=== PATIENT | female | born 1985 | race Caucasian/White ===

== ENCOUNTER 2019-12-14 15:12 | Outpatient (CLI) | payer OTHER, SELFPAY ==
--- NOTE | 2019-12-14 15:16 | US_ITS ---
WS: [id number] RIGHT UPPER QUADRANT ULTRASOUND HISTORY: PAIN COMPARISON: 10/22/2018 Liver: 12.3 cm in length. Normal size and echogenicity with no intrahepatic dilatation. No mass. Gallbladder: Numerous stones and no normally distended gallbladder. No pericholecystic fluid or gallb ladder wall thickening. CBD: 0.3 cm Pancreas: Normal size and echogenicity. Right kidney: 12.0 cm in length. Normal echogenicity with no mass or hydronephrosis. Aorta and IVC: Unremarkable. No ascites. US/US gall bladder [id number] IMPRESSION: 1. Cholelithiasis without evidence for acute cholecystitis. 2. No bile duct dilatation.
== END 2019-12-14 15:13 | disposition home or self-care (01) ==
LOC: RAD 15:14
PROVIDERS: PCP Family Medicine; Visit Provider Nurse Practitioner Family
DX: K80.20 Calculus of gallbladder without cholecystitis without obstruction (principal); R10.11 Right upper quadrant pain
CPT/HCPCS: 76705

== ENCOUNTER 2020-10-06 08:19 | Outpatient (CLI) | payer OTHER, SELFPAY ==
--- NOTE | 2020-10-06 08:22 | MM_ITS ---
WS: [id number] Exam: [id number] Date/Time of Exam: 10/06/2020 8:30 AM Reason For Exam: SCREENING VIEWS: MLO and CC views both breasts. Comparison made with prior exam of 01/04/2015 left breast only. Findings: There was no sign of mass, architectural distortion or suspicious calcification in either breast. He terogeneously [place] MM/[place] [id number] Impression: BI-RADS: 2-Benign FOLLOW-UP: 1 Year Follow-up This mammogram was also analyzed by the Computer Aided Detection System R2 [employer].
== END 2020-10-06 08:20 | disposition home or self-care (01) ==
LOC: RADSHAW 08:21
PROVIDERS: PCP Family Medicine; Visit Provider Family Medicine
DX: Z12.31 Encounter for screening mammogram for malignant neoplasm of breast (principal)
CPT/HCPCS: 77067

== ENCOUNTER 2022-12-28 10:53 | Outpatient (CLI) | payer OTHER, SELFPAY ==
--- NOTE | 2022-12-28 10:59 | MM_ITS ---
WS: [id number] BILATERAL 3D TOMOSYNTHESIS DIGITAL DIAGNOSTIC MAMMOGRAPHY WITH CAD CLINICAL INFORMATION: RT BR LUMP HISTORY: RIGHT breast lump COMPARISON: 2020 TECHNIQUE: Bilateral CC, MLO, and ML views. FINDINGS: The breasts are composed of heterogeneous fibroglandular density, which can limit the detection of sm all underlying mass lesions. Palpable marker upper outer RIGHT breast. Ultrasound described below. A few incidental punctate calcifications. LEFT breast parenchyma is unchanged. ULTRASOUND BREAST RIGHT TECHNIQUE: Ultrasound right breast focused area of concern. CLINICAL INFORMATION: RT BR LUMP FINDINGS: Ultrasound RIGHT breast area of concern upper outer RIGHT breast at the 11:00 position 5 cm from the nipple. Normal underlying parenchymal tissue. No cystic or solid lesions. No suspicious findings. MM/[place] [id number] IMPRESSION: BI-RADS: 2-Benign FOLLOW UP: 1 Year Follow-up Recommend return to annual screening mammography.
--- NOTE | 2022-12-28 11:19 | US_ITS ---
WS: [id number] BILATERAL 3D TOMOSYNTHESIS DIGITAL DIAGNOSTIC MAMMOGRAPHY WITH CAD CLINICAL INFORMATION: RT BR LUMP HISTORY: RIGHT breast lump COMPARISON: 2020 TECHNIQUE: Bilateral CC, MLO, and ML views. FINDINGS: The breasts are composed of heterogeneous fibroglandular density, which can limit the detection of sm all underlying mass lesions. Palpable marker upper outer RIGHT breast. Ultrasound described below. A few incidental punctate calcifications. LEFT breast parenchyma is unchanged. ULTRASOUND BREAST RIGHT TECHNIQUE: Ultrasound right breast focused area of concern. CLINICAL INFORMATION: RT BR LUMP FINDINGS: Ultrasound RIGHT breast area of concern upper outer RIGHT breast at the 11:00 position 5 cm from the nipple. Normal underlying parenchymal tissue. No cystic or solid lesions. No suspicious findings. US/US breast RT limited* [id number] IMPRESSION: BI-RADS: 2-Benign FOLLOW UP: 1 Year Follow-up Recommend return to annual screening mammography.
== END 2022-12-28 10:54 | disposition home or self-care (01) ==
LOC: RAD 10:55
PROVIDERS: PCP Family Medicine; Visit Provider Clinical Nurse Specialist Adult Health
DX: N63.11 Unspecified lump in the right breast, upper outer quadrant (principal)
CPT/HCPCS: 76642; 77062; G0279